=== PATIENT | female | born 1960 | race Two or more races ===

== ENCOUNTER 2018-07-26 08:46 | Emergency (ER) | payer MEDICAID, OTHER ==
[~2018-07-26] VITALS: Ht 160 cm; Wt 72.6 kg
[2018-07-26 10:09] VITALS: BP 149/79
== END 2018-07-26 10:57 | disposition home or self-care (01) ==
LOC: ER 08:46
DX: S39.011A Strain of muscle, fascia and tendon of abdomen, initial encounter (principal); R51 Headache; V43.52XA Car driver injured in collision with other type car in traffic accident, initial encounter; Y93.89 Activity, other specified; Y99.8 Other external cause status; Y92.410 Unspecified street and highway as the place of occurrence of the external cause
CPT/HCPCS: 70450; 74176

== ENCOUNTER 2019-05-11 15:46 | Emergency (ER) | payer MEDICAID ==
[~2019-05-11] VITALS: Ht 157.5 cm; Wt 77.1 kg
[2019-05-11 16:55] VITALS: BP 133/75
[2019-05-11] MEDS ORDERED: ACETAMINOPHEN 325 MG TAB PO ONE (17:15)
[2019-05-11] MEDS ORDERED: IBUPROFEN 600 MG TAB PO ONE (17:15)
== END 2019-05-11 18:54 | disposition home or self-care (01) ==
LOC: ER 15:47
DX: S29.012A Strain of muscle and tendon of back wall of thorax, initial encounter (principal); V43.52XA Car driver injured in collision with other type car in traffic accident, initial encounter; Y93.I9 Activity, other involving external motion; Y92.488 Other paved roadways as the place of occurrence of the external cause; Y99.8 Other external cause status
CPT/HCPCS: 72070